=== PATIENT | female | born 1945 | race Caucasian/White ===

== ENCOUNTER → 2017-10-02 | Outpatient (CLI) | payer MEDICARE, OTHER ==
[~2017-10-02] MED LIST: ALPR0.5T3 PO; CALC1TAB87 PO; CITA10TA4 PO; CITR500T PO; FISH1200 PO; IBUP1TAB7 PO; IRBE150T15 PO; LEVO125T4 PO; MULTTAB67 PO; OMEP20TA93 PO; TRAM50TA PO; VITA500T83 PO
[2017-10-02 10:04] LABS: AUTOMATED NEUTROPHIL # 3.8 TH/MM3 (1.8-7.7); BASOPHIL # 0.1 TH/MM3 (0-0.2); EOSINOPHIL # 0.1 TH/MM3 (0-0.4); EOSINOPHIL % 1.5 % (0.0-4.0); HEMATOCRIT 40.5 % (35.0-46.0); HEMOGLOBIN 14.2 GM/DL (11.6-15.3); LYMPH % 29.3 % (9.0-44.0); LYMPHOCYTE # 1.9 TH/MM3 (1.0-4.8); MEAN CELL VOLUME 92.6 FL (80.0-100.0); MEAN CORPUSCULAR HEMOGLOBIN 32.5 PG (27.0-34.0); MEAN CORPUSCULAR HGB CONC 35.1 % (32.0-36.0); MEAN PLATELET VOLUME 8.7 FL (7.0-11.0); MONO % 10.7 % (0.0-8.0); MONOCYTE # 0.7 TH/MM3 (0-0.9); NEUT % 57.5 % (16.0-70.0); PLATELET COUNT 251 TH/MM3 (150-450); RED BLOOD COUNT 4.37 MIL/MM3 (4.00-5.30); RED CELL DISTRIBUTION WIDTH 12.8 % (11.6-17.2); WHITE BLOOD COUNT 6.6 TH/MM3 (4.0-11.0)
[2017-10-02 10:07] LABS: PROTHROMBIN TIME - PATIENT 10.1 SEC (9.8-11.6)
[2017-10-02 10:26] LABS: WESTERGREN SEDIMENTATION RATE 21 mm/hr (0-30)
[2017-10-02 10:28] LABS: ALBUMIN 3.2 GM/DL (3.4-5.0); AST (GOT) 15 U/L (15-37); BICARBONATE 29.7 MEQ/L (21.0-32.0); BLOOD UREA NITROGEN 22 MG/DL (7-18); CALCIUM 9.1 MG/DL (8.5-10.1); CHLORIDE 104 MEQ/L (98-107); CREATININE 0.94 MG/DL (0.50-1.00); GLOMERULAR FILTRATION RATE 59 ML/MIN (>89); GLUCOSE,FASTING 79 MG/DL (74-99); SODIUM (NA) 140 MEQ/L (136-145)
[2017-10-02 10:29] LABS: ALT (GPT) 11 U/L (10-53)
[2017-10-02 10:31] LABS: ALKALINE PHOSPHATASE 145 U/L (45-117); TOTAL BILIRUBIN ADULT 0.6 MG/DL (0.2-1.0); TOTAL PROTEIN 7.4 GM/DL (6.4-8.2)
[2017-10-02 10:32] LABS: BACTERIA, URINE OCC /hpf; BILIRUBIN, URINE NEG (NEG); BLOOD, URINE NEG (NEG); GLUCOSE,URINE NEG (NEG); KETONE, URINE NEG (NEG); MUCUS URINE FEW /lpf (OCC); NITRITE,URINE NEG (NEG); PH, URINE 5.5 (5.0-8.5); SQUAMOUS EPITHELIAL CELL URINE 11 /hpf (0-5); URINE COLOR YELLOW (YELLW/STRAW); URINE LEUKOCYTE ESTERASE MOD (NEG); WHITE BLOOD CELL CLUMPS RARE
--- NOTE | 2017-10-02 11:43 | RADRPT ---
EXAM DATE/TIME: 10/02/2017 11:35 [facility] COMPARISON: No previous studies available for comparison. INDICATIONS : Pre-op right hip replacement. MEDICAL HISTORY : Hypertension. SURGICAL HISTORY : None. ENCOUNTER: Initial ACUITY: 1 day PAIN SCORE: 0/10 LOCATION: Bilateral chest FINDINGS: PA and lateral views of the chest demonstrate the lungs to be symmetrically aerated without evidence of mass, infiltrate or effusion. The cardiomediastinal contours are unremarkable. Osseous structure s are intact. CONCLUSION: No acute disease. Carl Anderson MD FACR on October 02, 2017 at 11:40 Board Certified Radiologist. This report was verified electronically.
== END ==
LOC: CPRE 08:59
PROVIDERS: ATTEND Orthopaedic Surgery Sports Medicine
DX: Z01.812 Encounter for preprocedural laboratory examination (principal); Z01.811 Encounter for preprocedural respiratory examination; Z01.818 Encounter for other preprocedural examination; R82.99 Other abnormal findings in urine; M25.50 Pain in unspecified joint; M16.11 Unilateral primary osteoarthritis, right hip; I10 Essential (primary) hypertension; Z96.60 Presence of unspecified orthopedic joint implant; Z79.01 Long term (current) use of anticoagulants
CPT/HCPCS: 36415; 71046; 80053; 81001; 85025; 85610; 85652; 85730; 87086

== ENCOUNTER 2017-10-19 06:50 | Inpatient (IN) | payer MEDICARE, OTHER ==
[~2017-10-19] VITALS: Ht 154.9 cm; Wt 104.9 kg
[2017-10-19] MEDS ORDERED: HYDR-3288 PO (06:56)
[2017-10-19] MEDS ORDERED: ASPI81CH6 CHEW (06:57)
[2017-10-19] MEDS ORDERED: Post-op Orders (for Pharmacy) XX ONE (07:00)
[2017-10-19] MEDS ORDERED: ACETAMINOPHEN/HYDROcodone 325 MG/10 MG TAB PO PRN (07:00)
[2017-10-19] MEDS ORDERED: ZOLPIDEM TARTRATE 5 MG TAB PO PRN (07:00)
[2017-10-19] MEDS ORDERED: diphenhydrAMINE HCL 50 MG/ML VIAL IV PUSH PRN (07:00)
[2017-10-19] MEDS ORDERED: ONDANSETRON HCL 4 MG/2 ML VIAL IVP PRN (07:00)
[2017-10-19] MEDS ORDERED: MORPHINE SULFATE 4 MG/ML INJ IV PUSH PRN (07:00)
[2017-10-19] MEDS ORDERED: VANCOMYCIN 1000 MG/NS 250 ML (for <70 kg) IV SCH ×2 (07:30)
[2017-10-19] MEDS ORDERED: CHLORHEXIDINE GLUCONATE 2 % 1 PACK (2 CLOTHS) TOPICAL PRN (07:30)
[2017-10-19] MEDS ORDERED: METOPROLOL TARTRATE 25 MG TAB PO PRN (07:30)
[2017-10-19] MEDS ORDERED: LACTATED RINGER'S 1000 ML IV PRN (07:30)
[2017-10-19] MEDS ORDERED: POVIDONE IODINE 5% (ANTISEPSIS KIT) 4 APPLICATIONS EACH NARE PRN (07:30)
[2017-10-19] MEDS ORDERED: INSULIN HUMAN REGULAR 1,000 UNITS/10 ML VIAL SQ PRN (07:30)
[2017-10-19] MEDS ORDERED: POVIDONE IODINE 7.5% SCRUB 118 ML BOTTLE TOPICAL SCH (07:30)
[2017-10-19] MEDS ORDERED: SODIUM CHLORID 0.9% 500 ML IV PRN (07:30)
[2017-10-19] MEDS ORDERED: ceFAZolin 2 GM PREMIX 50 ML IV SCH (07:30)
[2017-10-19] MEDS ORDERED: EXPAREL PERI-ARTICULAR INJECTION (TOTAL VOL. 60 ML) P-ARTICULR SCH ×2 (07:30)
[2017-10-19] MEDS ORDERED: CHLORHEXIDINE GLUCONATE 4% SOLN 120 ML BTL TOPICAL SCH (07:30)
[2017-10-19] MEDS ORDERED: DEXAMETHASONE SOD PHOS 20 MG/5 ML VIAL IV SCH (07:45)
[2017-10-19] MEDS ORDERED: TRANEXAMIC PERI-ARTICULAR 3,000 MG/NS 100 ML P-ARTICULR SCH ×2 (07:45)
[2017-10-19] MEDS ORDERED: VANCOMYCIN 1 GM/200 ML INJ 200 ML IV ONE (07:55)
[2017-10-19] MEDS ORDERED: SODIUM CHLORIDE 0.9% IV SCH (08:00)
[2017-10-19] MEDS ORDERED: TRANEXAMIC ACID IV SCH (08:00)
[2017-10-19 08:14] LABS: BILIRUBIN, URINE NEG (NEG); BLOOD, URINE NEG (NEG); GLUCOSE,URINE NEG (NEG); HYALINE CAST, URINE 3 /lpf (RARE); KETONE, URINE NEG (NEG); MUCUS URINE FEW /lpf (OCC); NITRITE,URINE NEG (NEG); SQUAMOUS EPITHELIAL CELL URINE 4 /hpf (0-5); URINE COLOR YELLOW (YELLW/STRAW); URINE LEUKOCYTE ESTERASE NEG (NEG)
[2017-10-19] MEDS ORDERED: GENTAMICIN SULFATE 80 MG/2 ML VIAL ONE (08:56)
[2017-10-19] MEDS ORDERED: BISACODYL 10 MG SUPP RECTAL PRN (09:00)
[2017-10-19] MEDS: CITALOPRAM HYDROBROMIDE 20 MG TAB PO SCH (09:00)
[2017-10-19] MEDS: LEVOTHYROXINE SODIUM 125 MCG TAB PO SCH (09:00)
[2017-10-19] MEDS ORDERED: ACETAMINOPHEN 1000 MG/100 ML 100 ML IV ONE (10:19)
[2017-10-19] MEDS ORDERED: DO NOT ADM ANY ANTICOAGULANT DRUGS PRN (11:56)
[2017-10-19] MEDS ORDERED: LIDOCAINE HCL 1% PF 5 ML SYRINGE OTHER ONE (12:00)
[2017-10-19] MEDS ORDERED: PHENYLEPH/NS 1000 MCG/10 ML SYR IV ONE (12:00)
[2017-10-19] MEDS ORDERED: NEOSTIGMINE 5 MG/5 ML SYRINGE IV PUSH ONE (12:00)
[2017-10-19] MEDS ORDERED: GLYCOPYRROLATE 1 MG/5 ML SYRINGE IV PUSH ONE (12:00)
[2017-10-19] MEDS ORDERED: ePHEDrine/NS 25 MG/5 ML SYRINGE IV ONE (12:00)
[2017-10-19] MEDS ORDERED: ROCURONIUM INJ 50 MG/5 ML SYRINGE IV PUSH ONE (12:00)
[2017-10-19] MEDS ORDERED: PROPOFOL 200 MG/20 ML AMP IV ONE (12:00)
[2017-10-19] MEDS ORDERED: ONDANSETRON HCL 4 MG/2 ML VIAL IV ONE (12:00)
[2017-10-19] MEDS ORDERED: MORPHINE SULFATE 4 MG/ML INJ ONE (12:01)
[2017-10-19] MEDS ORDERED: MIDAZOLAM HCL 2 MG/2 ML VIAL ONE (12:01)
[2017-10-19] MEDS ORDERED: *MEPERIDINE 25 MG INJ VIAL PERIprocedural Use ONLY ONE (12:07)
[2017-10-19] MEDS: SODIUM CHLOR 0.9% 1000 ML INJ 1,000 ML IV SCH ×2 (12:17→18:35)
[2017-10-19] MEDS ORDERED: *morphine SULFATE 10 MG/ML PERIprocedure ONLY ONE ×2 (12:27→13:05)
--- NOTE | 2017-10-19 13:07 | RADRPT ---
EXAM DATE/TIME: 10/19/2017 12:15 [facility] COMPARISON: No previous studies available for comparison. INDICATIONS : Post operative right hip surgery. MEDICAL HISTORY : Hypertension. SURGICAL HISTORY : None. ENCOUNTER: Initial ACUITY: 1 day PAIN SCORE: Non-responsive. LOCATION: Right hip. FINDINGS: Total right hip arthroplasty in place As the components are well positioned and in gross anatomic alignment. No significant zahira-hardware l ucency no significant bony fracture. Expected postoperative soft tissue changes in the right hip. CONCLUSION: 1. Status post right hip arthroplasty in anatomic alignment without significant fracture. Maulik Hameed MD on October 19, 2017 at 13:04 Board Certified Radiologist. This report was verified electronically.
[2017-10-19] MEDS ORDERED: HYDROmorphone HCL PF 2 MG/ML VIAL ONE (13:23)
--- NOTE | 2017-10-19 13:46 | PD.CONS ---
HPI Service [facility] Consult Requested By Dr. Duglas Serrano from orthopedic service Reason for Consult Medical management Primary Care Physician Catia Pearson MD Diagnoses: History of Present Illness Patient is a very pleasant 72-year-old female with history of hypertension hypothyroidism GERD, depression who is admitted under orthopedic services today and underwent right hip arthroplasty. Patient states she has been having pain for the past 2 years now, initially walking independently progress to cane and for the past couple of months and had been using a walker for ambulation. Also have been increasing pain with ambulation. Finally admitted today and underwent surgery. [facility] consulted for management of medical problems. Patient is now seen post op at PACU, very motivated with physical therapy. Review of Systems Constitutional: DENIES: Diaphoretic episodes, Fatigue, Fever, Weight gain, Weight loss, Chills, Dizziness, Change in appetite, Night Sweats Endocrine: DENIES: Abnorml menstrual pattern, Heat/cold intolerance, Polydipsia , Polyuria, Polyphagia Eyes: DENIES: Blurred vision, Diplopia, Eye inflammation, Eye pain, Vision loss , Photosensitivity, Double Vision Ears, nose, mouth, throat: DENIES: Tinnitus, Hearing loss, Vertigo, Nasal discharge, Oral lesions, Throat pain, Hoarseness, Ear Pain, Running Nose, Epistaxis, Sinus Pain, Toothache, Odynophagia Respiratory: DENIES: Apneas, Cough, Snoring, Wheezing, Hemoptysis, Sputum production, Shortness of breath Cardiovascular: DENIES: Chest pain, Palpitations, Syncope, Dyspnea on Exertion , PND, Lower Extremity Edema, Orthopnea, Claudication Gastrointestinal: DENIES: Abdominal pain, Black stools, Bloody stools, Constipation, Diarrhea, Nausea, Vomiting, Difficulty Swallowing, Anorexia Genitourinary: DENIES: Abnormal vaginal bleeding, Dysmenorrhea, Dyspareunia, Sexual dysfunction, Urinary frequency, Urinary incontinence, Urgency, Hematuria , Dysuria, Nocturia, Vaginal discharge Musculoskeletal: COMPLAINS OF: Joint pain Integumentary: DENIES: Abnormal pigmentation, Pruritus, Rash, Nail changes, Breast masses, Breast skin changes, Nipple discharge Hematologic/lymphatic: DENIES: Bruising, Lymphadenopathy Immunologic/allergic: DENIES: Eczema, Urticaria Neurologic: DENIES: Abnormal gait, Headache, Localized weakness, Paresthesias, Seizures, Speech Problems, Tremor, Poor Balance Psychiatric: COMPLAINS OF: Depression (positive history controlled by medication), DENIES: Anxiety, Confusion, Mood changes, Hallucinations, Agitation , Suicidal Ideation, Homicidal Ideation, Delusions Past Family Social History Allergies: Coded Allergies: No Known Allergies (Unverified , 10/02/17) Past Medical History Hypertension Hypothyroidism GERD Depression Past Surgical History No previous surgeries Reported Medications Citalopram Synthroid Enalapril Protonix Active Ordered Medications See EMR Family History Noncontributory Social History History of smoking quit 30 years ago next I'm very occasional wine Physical Exam Vital Signs Vital Signs Date Time Temp Pulse Resp B/P (MAP) Pulse Ox O2 Delivery O2 Flow Rate FiO2 10/19/17 13:30 67 19 105/56 (72) 97 Nasal Cannula 2 10/19/17 13:00 79 13 107/53 (71) 99 Nasal Cannula 2 10/19/17 12:45 78 17 130/60 (83) 100 Nasal Cannula 2 10/19/17 12:30 81 19 118/54 (75) 99 Nasal Cannula 2 10/19/17 12:15 79 17 123/58 (79) 100 Nasal Cannula 2 10/19/17 12:00 80 18 133/60 (84) 100 Nasal Cannula 2 10/19/17 11:56 97.5 83 20 122/59 (80) 99 Nasal Cannula 2 10/19/17 07:53 98.4 79 18 104/49 (67) 96 Physical Exam GENERAL: Awake alert oriented 3 SKIN: No rashes, ecchymoses or lesions. Cool and dry. HEAD: Atraumatic. Normocephalic. EYES: Pupils equal round and reactive. Extraocular motions intact. No scleral icterus. ENT: Nose without bleeding, Airway patent. NECK: . No JVD or lymphadenopathy. Supple, nontender, no meningeal signs. CARDIOVASCULAR: Regular rate and rhythm without murmurs, gallops, or rubs. RESPIRATORY: Clear to auscultation. Breath sounds equal bilaterally. No wheezes , rales, or rhonchi. GASTROINTESTINAL: Abdomen soft, non-tender, nondistended.. No guarding. MUSCULOSKELETAL: Right hip postop dressing in place. Right lower extremity with leg brace in place good peripheral pulses Extremities without clubbing, cyanosis, or edema. No joint tenderness, effusion , or edema noted. No calf tenderness. Negative Homans sign bilaterally. NEUROLOGICAL: Awake and alert. Cranial nerves II through XII intact. Motor and sensory grossly within normal limits. Moves all extremities spontaneously. Normal speech. Laboratory Laboratory Tests Test 10/19/17 07:30 Urine Color YELLOW Urine Turbidity CLEAR Urine pH 6.0 Urine Specific [place] 1.012 Urine Protein NEG Urine Glucose (UA) NEG Urine Ketones NEG Urine Occult Blood NEG Urine Nitrite NEG Urine Bilirubin NEG Urine Urobilinogen LESS THAN 2.0 Urine Leukocyte Esterase NEG Urine RBC LESS THAN 1 Urine WBC 1 Urine Squamous Epithelial Cells 4 Urine Hyaline Casts 3 Urine Mucus FEW Microscopic Urinalysis Comment CATH-CULT NOT IND Assessment and Plan Assessment and Plan 72-year-old female admitted Status post right total hip arthroplasty Orthopedic services ff. PTOT daily. When necessary pain meds. History of hypothyroidism. Continue on Synthroid History of hypertension continue on Cozaar History of GERD continue on PPI History of depression continue on citalopram.Xanax on Lovenox for DVT prophylaxis Discharge planning- case management consulted [facility] facility. Thank you for this consultation follow patient in-house with you Discussed Condition With Patient Amanda Lopez MD Oct 19, 2017 13:46
[2017-10-19] MEDS: ceFAZolin 2 GM PREMIX 50 ML IV SCH ×2 (15:14→22:00)
[2017-10-19 16:30] VITALS: BP 110/41; PULSE 63; RESP 18; TEMP 96; O2SAT 95
[2017-10-19] MEDS: ALPRAZolam 0.5 MG TAB PO PRN (18:12)
[2017-10-19] MEDS: ACETAMINOPHEN/HYDROcodone 325 MG/10 MG TAB PO PRN ×2 (18:16→23:33)
[2017-10-19 20:05] VITALS: BP 120/54; PULSE 77; RESP 18; TEMP 96.9; O2SAT 97
[2017-10-19] MEDS: ASCORBIC ACID 500 MG TAB PO SCH (23:33)
[2017-10-20] VITALS (8 sets, daily range): BP systolic 108–156; BP diastolic 57–92; PULSE 72–90; RESP 18; TEMP 96.5–99.4; O2SAT 95–99
[2017-10-20] MEDS: ceFAZolin 2 GM PREMIX 50 ML IV SCH (04:53)
[2017-10-20] MEDS: LEVOTHYROXINE SODIUM 125 MCG TAB PO SCH (04:55)
[2017-10-20] MEDS: SODIUM CHLOR 0.9% 1000 ML INJ 1,000 ML IV SCH ×2 (04:55→15:00)
--- NOTE | 2017-10-20 07:48 | HHI.PR ---
Subjective Remarks had a good night- slept good no pain complains Objective Vitals Vital Signs Date Time Temp Pulse Resp B/P (MAP) Pulse Ox O2 Delivery O2 Flow Rate FiO2 10/20/17 05:00 97.0 72 18 131/62 (85) 98 10/20/17 00:05 96.8 74 18 125/92 (103) 95 10/19/17 20:05 96.9 77 18 120/54 (76) 97 10/19/17 16:30 96.0 63 18 110/41 (64) 95 10/19/17 15:00 97.7 68 18 98/59 (72) 96 Nasal Cannula 2 10/19/17 14:30 70 16 128/64 (85) 93 Nasal Cannula 2 10/19/17 14:00 64 14 102/51 (68) 94 Nasal Cannula 2 10/19/17 13:30 67 19 105/56 (72) 97 Nasal Cannula 2 10/19/17 13:00 79 13 107/53 (71) 99 Nasal Cannula 2 10/19/17 12:45 78 17 130/60 (83) 100 Nasal Cannula 2 10/19/17 12:30 81 19 118/54 (75) 99 Nasal Cannula 2 10/19/17 12:15 79 17 123/58 (79) 100 Nasal Cannula 2 10/19/17 12:00 80 18 133/60 (84) 100 Nasal Cannula 2 10/19/17 11:56 97.5 83 20 122/59 (80) 99 Nasal Cannula 2 10/19/17 07:53 98.4 79 18 104/49 (67) 96 I/O 10/19/17 10/19/17 10/19/17 10/20/17 10/20/17 10/20/17 07:00 15:00 23:00 07:00 15:00 23:00 Intake Total 1620 ml 830 ml 360 ml Output Total 3750 ml 320 ml Balance -2130 ml 510 ml 360 ml Intake Oral 20 ml 380 ml 360 ml IV Total 1600 ml 450 ml Output Urine Total 150 ml 320 ml Estimated Blood Loss 600 ml Other 3000 ml # Voids 1 # Bowel Movements 0 0 Imaging Last Impressions Hip and Pelvis X-Ray 10/19/17 0000 Signed Impressions: Service Date/Time: Thursday, October 19, 2017 12:15 - CONCLUSION: 1. Status post right hip arthroplasty in anatomic alignment without significant fracture. Maulik Hameed MD Objective Remarks anicteric lung- clear regular rhythm abdomen soft, nontender right LE- leg brace in place right hip -post op dressing in place sensory -intact Procedures 10/19- right hip arthroplasty A/P Assessment and Plan 72-year-old female admitted Status post right total hip arthroplasty 10/19 Orthopedic services ff. PTOT daily. prn pain meds History of hypothyroidism. Continue on Synthroid History of hypertension continue on Cozaar History of GERD continue on PPI History of depression continue on citalopram.Xanax. On Lovenox for DVT prophylax Incentive spirometry Discharge planning- case management consulted -choice- Amanda Jackson MD Oct 20, 2017 07:48
--- NOTE | 2017-10-20 08:08 | PD.ORT.PN ---
Subjective Post Op Day #: 1 Subjective Remarks doing well. pain tolerable. Objective Vitals Vital Signs Date Time Temp Pulse Resp B/P (MAP) Pulse Ox O2 Delivery O2 Flow Rate FiO2 10/20/17 05:00 97.0 72 18 131/62 (85) 98 10/20/17 00:05 96.8 74 18 125/92 (103) 95 10/19/17 20:05 96.9 77 18 120/54 (76) 97 10/19/17 16:30 96.0 63 18 110/41 (64) 95 10/19/17 15:00 97.7 68 18 98/59 (72) 96 Nasal Cannula 2 10/19/17 14:30 70 16 128/64 (85) 93 Nasal Cannula 2 10/19/17 14:00 64 14 102/51 (68) 94 Nasal Cannula 2 10/19/17 13:30 67 19 105/56 (72) 97 Nasal Cannula 2 10/19/17 13:00 79 13 107/53 (71) 99 Nasal Cannula 2 10/19/17 12:45 78 17 130/60 (83) 100 Nasal Cannula 2 10/19/17 12:30 81 19 118/54 (75) 99 Nasal Cannula 2 10/19/17 12:15 79 17 123/58 (79) 100 Nasal Cannula 2 10/19/17 12:00 80 18 133/60 (84) 100 Nasal Cannula 2 10/19/17 11:56 97.5 83 20 122/59 (80) 99 Nasal Cannula 2 I/O 10/19/17 10/19/17 10/19/17 10/20/17 10/20/17 10/20/17 07:00 15:00 23:00 07:00 15:00 23:00 Intake Total 1620 ml 830 ml 360 ml Output Total 3750 ml 320 ml Balance -2130 ml 510 ml 360 ml Intake Oral 20 ml 380 ml 360 ml IV Total 1600 ml 450 ml Output Urine Total 150 ml 320 ml Estimated Blood Loss 600 ml Other 3000 ml # Voids 1 # Bowel Movements 0 0 Objective Remarks in bed, nad dressing c/d/i thigh soft neg homans nvi Assessment & Plan Ortho Post Op Day #: 1 Problem List: Assessment and Plan s/p R MARLENI posterior approach wbat - posterior hip precautions lovenox, d/c on asa81 ok to maintain dressing unless saturated d/c planning to snf - [facility]. f/up dr. rendon 2 weeks Duglas Lopez Oct 20, 2017 08:08
--- NOTE | 2017-10-20 08:10 | HHI.DCPOC ---
Discharge Care Plan Diagnosis: (1) Primary localized osteoarthrosis, pelvic region and thigh Your Health Problems Are: Difficulty with ADL Goals to Promote Your Health * To prevent worsening of your condition and complications * To maintain your health at the optimal level Directions to Meet Your Goals Take your medications as prescribed Follow your dietary instruction Follow activity as directed Keep your appointments as scheduled Take your immunizations and boosters as scheduled If your symptoms worsen call your PCP, if no PCP go to Urgent Care Center or Emergency Room Smoking is Dangerous to Your Health. Avoid second hand smoke Call the 24-hour hour crisis hotline for domestic abuse at Duglas Lopez Oct 20, 2017 08:10
[2017-10-20] MEDS ORDERED: WALKER WHEELS/F1 MIS (08:13)
[2017-10-20] MEDS ORDERED: COMMODE 3-IN-11 MIS (08:14)
[2017-10-20 08:23] LABS: HEMATOCRIT 33.4 % (35.0-46.0); HEMOGLOBIN 11.7 GM/DL (11.6-15.3); MEAN CELL VOLUME 93.7 FL (80.0-100.0); MEAN CORPUSCULAR HEMOGLOBIN 32.8 PG (27.0-34.0); MEAN PLATELET VOLUME 8.8 FL (7.0-11.0); PLATELET COUNT 202 TH/MM3 (150-450); RED BLOOD COUNT 3.57 MIL/MM3 (4.00-5.30); RED CELL DISTRIBUTION WIDTH 13.1 % (11.6-17.2)
[2017-10-20] MEDS: LOSARTAN 50 MG TAB PO SCH (08:27)
[2017-10-20] MEDS: PANTOPRAZOLE SOD 20 MG DELAYED RELEASE TAB PO SCH (08:28)
[2017-10-20] MEDS: CITALOPRAM HYDROBROMIDE 20 MG TAB PO SCH (08:28)
[2017-10-20 09:12] LABS: BICARBONATE 27.4 MEQ/L (21.0-32.0); CALCIUM 8.1 MG/DL (8.5-10.1); CREATININE 1.32 MG/DL (0.50-1.00)
[2017-10-20] MEDS: ACETAMINOPHEN/HYDROcodone 325 MG/10 MG TAB PO PRN ×3 (11:17→19:41)
[2017-10-20] MEDS: ENOXAPARIN SODIUM 40 MG/0.4 ML SYRINGE SQ SCH (11:17)
--- NOTE | 2017-10-20 11:53 | MP ---
cc: TARA BAKER M.D. DATE OF SURGERY 10/19/2017 PREOPERATIVE DIAGNOSIS Right hip osteoarthritis. POSTOPERATIVE DIAGNOSIS Right hip osteoarthritis. PROCEDURE Right total hip arthroplasty. SURGEON Dr. Tara Baker SALESPERSON HOSIERY Keon Lopez PA-C ANESTHESIA General. ESTIMATED BLOOD LOSS 200 cc. COMPLICATIONS None. IMPLANTS USED DePuy Corail size 11 high offset Press-Fit femoral stem, size 48 Lindside Gription cup, size 32 mm cobalt chrome head, +9 neck, a +4 high offset 10-degree polyethylene highly cross-linked liner and a 6.5 x 35-mm screw. JUSTIFICATION This patient is a 72-year-old female with history of severe end-stage osteoarthritis involving the right hip. She has severe disabling pain with standing, walking, ambulation with weightbearing activities and severe pain at rest. The pain does interfere with activities of daily living. She has failed greater than three months of nonoperative conservative treatment to include medications, therapy, injections, ambulatory assistive aids, home exercise program, activity modification and weight loss attempts. X-rays of the right hip reveal severe end-stage osteoarthritis, [id number] joint space narrowing, subchondral sclerosis, subchondral cysts, osteophyte formation with subluxation. The patient was counseled as to the risks, benefits and alternatives to a total hip arthroplasty. The risks were discussed which include but are not limited to anesthesia, bleeding, infection, damage to nerves, blood vessels, pain, stiffness, fracture dislocation, leg length discrepancy, blood clots, pulmonary embolism and even . The patient's pain is severe. She favored the benefits over the risks. She did wish to proceed with surgery. PROCEDURE IN DETAIL Written consent was obtained. The patient was identified by name and taken to the operating room, placed supine on the operating room table. General anesthesia was administered as well as 2 grams of IV Ancef and 1 gram of IV vancomycin. The patient was carefully turned to the left lateral position. A lateral arm roll was placed. All bony prominences and pressure points were well padded. The right hip and right lower extremity were prepped and draped using isopropyl alcohol, Hibiclens solution and Chloraprep solution. After a time-out was performed, a longitudinal incision was made over the posterolateral aspect of the right hip. The fascial layer was incised. The piriformis and capsule was incised and tagged with #2 FiberWire suture. The osteoarthritic femoral head and neck component was dislocated. An oscillating saw was used to perform a femoral neck cut. The femoral head and neck component was removed. A 10 blade scalpel was used to excise the labrum and sequential reaming begun at size 44 mm, carried through size 48 mm. Subsequently, a solid Lindside size 48 mm cup was impacted. I was not satisfied with the amount of purchase of the solid cup and I changed this out for a 48-mm cup that has a three-hole option. After I implanted that cup, I placed a 6.5 mm x 35 mm screw in the posterior superior quadrant of the acetabulum. There was excellent purchase and fixation after insertion of the screw and the cup was tested manually and noted to have good stability. The cup was implanted at approximately 45 degrees of adduction and 10 degrees of anteversion. At this point attention was turned to the femur where a box-cutting osteotome was used to gain entrance into the intramedullary canal of the femur. This was followed by canal finder, lateralizing reamers, sequential broaching up to size 11, followed by calcar planer. Trial head and neck combinations were evaluated and the final components implanted. With the current components the leg could achieve full extension and external rotation without evidence of anterior instability or impingement. The hip could be flexed 90 degrees and internally rotated approximately 70 degrees before evidence of posterior instability. Soft tissue tension felt appropriate. The surgical wound was thoroughly irrigated with sterile saline pulse lavage antibiotic impregnated solution. The piriformis and capsule was repaired with #2 FiberWire sutures, the fascial layer with #1 Vicryl suture, the subcutaneous layer with 2-0 Vicryl suture and the skin incision closed with Dermabond. Sterile dressings were applied. The patient tolerated the procedure well with no intraoperative complications noted. Keon Lopez, physician assistant distribution manager certified, was present during the entire procedure to include patient positioning and the procedure itself. The medical necessity of a physician assistant distribution manager was indicated in this case due to the complexity of the procedure. He assisted with appropriate manipulation of the leg and also retraction of muscle, tendon, bone and neurovascular structures. He assisted with preparation of bone and also implantation of the prosthetic replacement. MD DAKSHA Garcia/TAYLA /11:27 AM /11:22 AM
[2017-10-20] MEDS: MULTIVITAMINS/MINERALS THERAPEUTIC TAB PO SCH (19:41)
[2017-10-20] MEDS: ASCORBIC ACID 500 MG TAB PO SCH (19:41)
[2017-10-20] MEDS: DOCUSATE SODIUM 100 MG CAP PO SCH (19:41)
[2017-10-20] MEDS: ALPRAZolam 0.5 MG TAB PO PRN (21:17)
[2017-10-21] VITALS (7 sets, daily range): BP systolic 100–129; BP diastolic 51–74; PULSE 75–87; RESP 16–18; TEMP 96.7–99.6; O2SAT 93–98
[2017-10-21] MEDS: SODIUM CHLOR 0.9% 1000 ML INJ 1,000 ML IV SCH ×3 (01:00→20:40)
[2017-10-21] MEDS: LEVOTHYROXINE SODIUM 125 MCG TAB PO SCH (06:08)
[2017-10-21] MEDS: ACETAMINOPHEN/HYDROcodone 325 MG/10 MG TAB PO PRN ×5 (06:09→23:28)
--- NOTE | 2017-10-21 08:02 | PD.ORT.PN ---
Subjective Post Op Day #: 2 Subjective Remarks increase in pain last night, groin region. currently under control. Objective Vitals Vital Signs Date Time Temp Pulse Resp B/P (MAP) Pulse Ox O2 Delivery O2 Flow Rate FiO2 10/21/17 00:45 98.6 83 18 102/57 (72) 97 10/20/17 20:25 99.4 90 18 156/72 (100) 96 10/20/17 17:48 97 21 10/20/17 16:27 16 10/20/17 16:00 97.2 85 18 139/62 (87) 97 10/20/17 12:01 96.5 74 18 108/57 (74) 95 10/20/17 09:42 99 21 I/O 10/20/17 10/20/17 10/20/17 10/21/17 10/21/17 10/21/17 07:00 15:00 23:00 07:00 15:00 23:00 Intake Total 360 ml 960 ml 360 ml 360 ml Output Total 200 ml Balance 360 ml 760 ml 360 ml 360 ml Intake Oral 360 ml 960 ml 360 ml 360 ml Output Urine Total 200 ml # Voids 1 1 2 # Bowel Movements 0 0 0 0 Result Diagram: 10/20/17 0742 10/20/17 0742 Objective Remarks in chair, nad dressing c/d/i thigh soft neg homans nvi Assessment & Plan Ortho Post Op Day #: 2 Problem List: Assessment and Plan s/p R MARLENI posterior approach wbat - posterior hip precautions lovenox, d/c on asa81 ok to maintain dressing unless saturated d/c planning to snf - [facility]. f/up dr. rendon 2 weeks Duglas Lopez Oct 21, 2017 08:02
[2017-10-21] MEDS ORDERED: MAGNESIUM HYDROXIDE SUSP 30 ML CUP PO PRN (08:15)
[2017-10-21 08:21] LABS: HEMATOCRIT 32.8 % (35.0-46.0); HEMOGLOBIN 11.5 GM/DL (11.6-15.3); MEAN CELL VOLUME 93.1 FL (80.0-100.0); MEAN CORPUSCULAR HEMOGLOBIN 32.7 PG (27.0-34.0); MEAN CORPUSCULAR HGB CONC 35.1 % (32.0-36.0); MEAN PLATELET VOLUME 8.9 FL (7.0-11.0); PLATELET COUNT 220 TH/MM3 (150-450); RED BLOOD COUNT 3.52 MIL/MM3 (4.00-5.30); RED CELL DISTRIBUTION WIDTH 12.9 % (11.6-17.2); WHITE BLOOD COUNT 8.8 TH/MM3 (4.0-11.0)
[2017-10-21] MEDS: PANTOPRAZOLE SOD 20 MG DELAYED RELEASE TAB PO SCH (08:22)
[2017-10-21] MEDS: DOCUSATE SODIUM 100 MG CAP PO SCH ×2 (08:22→19:22)
[2017-10-21] MEDS: MULTIVITAMINS/MINERALS THERAPEUTIC TAB PO SCH ×2 (08:23→19:22)
[2017-10-21] MEDS: CITALOPRAM HYDROBROMIDE 20 MG TAB PO SCH (08:24)
[2017-10-21] MEDS: LOSARTAN 50 MG TAB PO SCH (08:25)
[2017-10-21 08:39] LABS: BICARBONATE 24.2 MEQ/L (21.0-32.0); CALCIUM 8.6 MG/DL (8.5-10.1); CREATININE 1.05 MG/DL (0.50-1.00)
[2017-10-21] MEDS: ENOXAPARIN SODIUM 40 MG/0.4 ML SYRINGE SQ SCH (10:48)
--- NOTE | 2017-10-21 15:11 | HHI.PR ---
Subjective Remarks She was seen and examined No complaint of significant pain to lower extremity Objective Vitals Vital Signs Date Time Temp Pulse Resp B/P (MAP) Pulse Ox O2 Delivery O2 Flow Rate FiO2 10/21/17 11:49 16 10/21/17 08:00 99.6 75 16 100/58 (72) 95 10/21/17 00:45 98.6 83 18 102/57 (72) 97 10/20/17 20:25 99.4 90 18 156/72 (100) 96 10/20/17 17:48 97 21 10/20/17 16:00 97.2 85 18 139/62 (87) 97 I/O 10/20/17 10/20/17 10/20/17 10/21/17 10/21/17 10/21/17 06:59 14:59 22:59 06:59 14:59 22:59 Intake Total 360 ml 960 ml 360 ml 360 ml Output Total 200 ml Balance 360 ml 760 ml 360 ml 360 ml Intake Oral 360 ml 960 ml 360 ml 360 ml Output Urine Total 200 ml # Voids 1 1 2 # Bowel Movements 0 0 0 0 Result Diagram: 10/21/17 0733 10/21/17 0733 Imaging Last Impressions Hip and Pelvis X-Ray 10/19/17 0000 Signed Impressions: Service Date/Time: Thursday, October 19, 2017 12:15 - CONCLUSION: 1. Status post right hip arthroplasty in anatomic alignment without significant fracture. Maulik Hameed MD Objective Remarks GENERAL: NAD SKIN: Warm and dry. HEAD: Normocephalic. EYES: No scleral icterus. No injection or drainage. NECK: Supple, trachea midline. No JVD or lymphadenopathy. CARDIOVASCULAR: Regular rate and rhythm without murmurs, gallops, or rubs. RESPIRATORY: Breath sounds equal bilaterally. No accessory muscle use. GASTROINTESTINAL: Abdomen soft, non-tender, nondistended. MUSCULOSKELETAL: No cyanosis, or edema. RLE repair-neurovascular intact BACK: Nontender without obvious deformity. No CVA tenderness. Procedures 10/19- right hip arthroplasty A/P Assessment and Plan 72 Year-old female with Status post right total hip arthroplasty 10/19 Treatment per orthopedic surgery. PT/OT daily. prn pain meds History of hypothyroidism. Continue on Synthroid History of hypertension continue on Cozaar History of GERD continue on PPI History of depression continue on citalopram.Xanax. On Lovenox for DVT prophylax, will discharge on aspirin Fahad Denney MD Oct 21, 2017 15:11
[2017-10-21] MEDS: ASCORBIC ACID 500 MG TAB PO SCH (19:22)
[2017-10-22] MEDS: ACETAMINOPHEN/HYDROcodone 325 MG/10 MG TAB PO PRN ×3 (03:22→12:21)
[2017-10-22] MEDS: LEVOTHYROXINE SODIUM 125 MCG TAB PO SCH (04:32)
[2017-10-22] MEDS: SODIUM CHLOR 0.9% 1000 ML INJ 1,000 ML IV SCH (05:27)
[2017-10-22 06:13] LABS: HEMATOCRIT 29.9 % (35.0-46.0); HEMOGLOBIN 10.6 GM/DL (11.6-15.3); MEAN CELL VOLUME 92.5 FL (80.0-100.0); MEAN CORPUSCULAR HEMOGLOBIN 32.8 PG (27.0-34.0); MEAN CORPUSCULAR HGB CONC 35.5 % (32.0-36.0); MEAN PLATELET VOLUME 8.9 FL (7.0-11.0); PLATELET COUNT 186 TH/MM3 (150-450); RED BLOOD COUNT 3.23 MIL/MM3 (4.00-5.30); RED CELL DISTRIBUTION WIDTH 12.7 % (11.6-17.2); WHITE BLOOD COUNT 7.6 TH/MM3 (4.0-11.0)
[2017-10-22 06:39] LABS: BICARBONATE 26.1 MEQ/L (21.0-32.0); CALCIUM 8.6 MG/DL (8.5-10.1); CREATININE 0.82 MG/DL (0.50-1.00)
[2017-10-22 08:10] VITALS: O2SAT 95
[2017-10-22] MEDS: CITALOPRAM HYDROBROMIDE 20 MG TAB PO SCH (08:12)
[2017-10-22] MEDS: DOCUSATE SODIUM 100 MG CAP PO SCH (08:12)
[2017-10-22] MEDS: PANTOPRAZOLE SOD 20 MG DELAYED RELEASE TAB PO SCH (08:12)
[2017-10-22] MEDS: MULTIVITAMINS/MINERALS THERAPEUTIC TAB PO SCH (08:12)
[2017-10-22] MEDS: LOSARTAN 50 MG TAB PO SCH (08:13)
--- NOTE | 2017-10-22 08:14 | PD.ORT.PN ---
Subjective Post Op Day #: 3 Subjective Remarks pain much improved Objective Vitals Vital Signs Date Time Temp Pulse Resp B/P (MAP) Pulse Ox O2 Delivery O2 Flow Rate FiO2 10/21/17 22:58 96.7 87 18 113/58 (76) 97 10/21/17 21:49 98 21 10/21/17 19:19 96.7 83 18 111/51 (71) 98 10/21/17 16:01 16 10/21/17 12:00 97.3 79 16 114/52 (72) 96 I/O 10/21/17 10/21/17 10/21/17 10/22/17 10/22/17 10/22/17 07:00 15:00 23:00 07:00 15:00 23:00 Intake Total 360 ml 600 ml 360 ml 720 ml Balance 360 ml 600 ml 360 ml 720 ml Intake Oral 360 ml 600 ml 360 ml 720 ml # Voids 2 3 1 1 # Bowel Movements 0 0 0 Result Diagram: 10/22/17 0425 10/22/17 0425 Objective Remarks in chair, nad dressing c/d/i thigh soft neg homans nvi Assessment & Plan Ortho Post Op Day #: 3 Problem List: Assessment and Plan s/p R MARLENI posterior approach wbat - posterior hip precautions lovenox, d/c on asa81 start daily dressing changes today d/c planning to snf - cleared for d/c f/up dr. rendon 2 weeks Duglas Lopez Oct 22, 2017 08:14
[2017-10-22 08:25] VITALS: BP 114/67; PULSE 79; RESP 17; TEMP 97.1; O2SAT 98
[2017-10-22] MEDS: ENOXAPARIN SODIUM 40 MG/0.4 ML SYRINGE SQ SCH (11:00)
[2017-10-22 12:03] VITALS: BP 92/54; PULSE 70; RESP 17; TEMP 97.8; O2SAT 97
--- NOTE | 2017-10-22 12:17 | HHI.PR ---
Subjective Remarks Patient was seen and examined States pain is well controlled Looking for discharge home today Objective Vitals Vital Signs Date Time Temp Pulse Resp B/P (MAP) Pulse Ox O2 Delivery O2 Flow Rate FiO2 10/22/17 12:03 97.8 70 17 92/54 (67) 97 10/22/17 08:25 97.1 79 17 114/67 (83) 98 10/22/17 08:10 95 21 10/21/17 22:58 96.7 87 18 113/58 (76) 97 10/21/17 21:49 98 21 10/21/17 19:19 96.7 83 18 111/51 (71) 98 10/21/17 16:01 16 I/O 10/21/17 10/21/17 10/21/17 10/22/17 10/22/17 10/22/17 07:00 15:00 23:00 07:00 15:00 23:00 Intake Total 360 ml 600 ml 360 ml 720 ml Balance 360 ml 600 ml 360 ml 720 ml Intake Oral 360 ml 600 ml 360 ml 720 ml # Voids 2 3 1 1 # Bowel Movements 0 0 0 Result Diagram: 10/22/175 10/22/17 0425 Objective Remarks GENERAL: NAD SKIN: Warm and dry. HEAD: Normocephalic. EYES: No scleral icterus. No injection or drainage. NECK: Supple, trachea midline. No JVD or lymphadenopathy. CARDIOVASCULAR: Regular rate and rhythm without murmurs, gallops, or rubs. RESPIRATORY: Breath sounds equal bilaterally. No accessory muscle use. GASTROINTESTINAL: Abdomen soft, non-tender, nondistended. MUSCULOSKELETAL: No cyanosis, or edema. RLE repair-neurovascular intact BACK: Nontender without obvious deformity. No CVA tenderness. Procedures 10/19- right hip arthroplasty A/P Assessment and Plan 72 Year-old female with Status post right total hip arthroplasty 10/19 Treatment per orthopedic surgery. PT/OT daily. prn pain meds History of hypothyroidism. Continue on Synthroid History of hypertension continue on Cozaar History of GERD continue on PPI History of depression continue on citalopram.Xanax. On Lovenox for DVT prophylax, will discharge on aspirin Discharge Planning Discharge per orthopedic surgery Fahad Denney MD Oct 22, 2017 12:17
--- NOTE | 2017-10-26 11:54 | MD ---
cc: TARA BAKER M.D. ADMISSION DATE: 10/19/2017 DISCHARGE DATE: 10/22/2017 ADMISSION DIAGNOSIS Severe degenerative osteoarthritis right hip. DISCHARGE DIAGNOSIS Severe degenerative osteoarthritis right hip. HISTORY OF PRESENT ILLNESS Ms. Nance is a 72-year-old female who presented to the [facility] for evaluation by Dr. Tara Baker regarding progressive right hip pain. The patient states the pain is a severe aching sensation that is aggravated by weightbearing activities. She has no alleviating factors although in the past she has tried medications, assistive devices, physical therapy, home exercise program, weight loss attempts without relief of symptoms. She does have x-ray evidence of severe degenerative osteoarthritis of the right hip. While in the office the patient was counseled on her diagnosis and treatment options. The risks, benefits and indications were all were discussed. The patient did elect proceed with surgical intervention to include a right total hip arthroplasty. DATE OF SURGERY 10/19/2017. PROCEDURE PERFORMED Right total hip arthroplasty posterior approach. POSTOP After surgery the patient was admitted to [facility] where she received appropriate medical management, pain control, DVT prophylaxis as well as physical therapy. DISCHARGE Once being discharged from the hospital the patient is cleared to go to a shelter facility. She is in stable condition. She may weight-bear as tolerated with posterior hip precautions. She is to receive daily dressing changes. DISCHARGE MEDICATIONS She has been provided prescriptions for pain control as well as DVT prophylaxis medication. FOLLOWUP She has also been provided a follow-up appointment in approximately 2 weeks from her date of surgery. The patient has asked appropriate questions which have been answered. The patient is cleared for discharge. Dictated by: Keon Lopez PA-C Tara Baker MD JWM/SSB /8:14 AM /11:51 AM
== END 2017-10-22 12:38 | DRG 470 ==
LOC: HSDI 06:50 → EDUNIT# 10:00 → N06B 15:58
PROVIDERS: ADMIT Orthopaedic Surgery Sports Medicine; ATTEND Orthopaedic Surgery Sports Medicine
PROC: 0SR902A Replacement of Right Hip Joint with Metal on Polyethylene Synthetic Substitute, Uncemented, Open Approach (ICD-10-PCS; principal; 2017-10-19 09:10)
DX: M16.11 Unilateral primary osteoarthritis, right hip (principal); Z68.41 Body mass index [BMI] 40.0-44.9, adult; I10 Essential (primary) hypertension; E66.01 Morbid (severe) obesity due to excess calories; E03.9 Hypothyroidism, unspecified; K21.9 Gastro-esophageal reflux disease without esophagitis; F32.9 Major depressive disorder, single episode, unspecified; Z87.891 Personal history of nicotine dependence; I25.2 Old myocardial infarction
CPT/HCPCS: 73502; 80048; 81001; 85027; 86850; 86900; 86901; 94150; C1776; J0131; J0690; J1100; J1170; J1580; J1650; J2175; J2250; J2270; J2370; J2405; J2710; J3010; J3370; J7030; J7120; L1830

== ENCOUNTER → 2018-02-05 | Outpatient (CLI) | payer MEDICARE, OTHER ==
[~2018-02-05] MED LIST changes: +ASPI81CH6 CHEW; +COMMODE 3-IN-11 MIS; -FISH1200 PO; +HYDR-3288 PO; +IBUP1TAB5 PO; -IBUP1TAB7 PO; +WALKER WHEELS/F1 MIS
[2018-02-05 11:28] LABS: AUTOMATED NEUTROPHIL # 3.2 TH/MM3 (1.8-7.7); BASOPHIL % 0.5 % (0.0-2.0); EOSINOPHIL # 0.1 TH/MM3 (0-0.4); EOSINOPHIL % 1.4 % (0.0-4.0); HEMOGLOBIN 13.7 GM/DL (11.6-15.3); LYMPH % 27.8 % (9.0-44.0); LYMPHOCYTE # 1.6 TH/MM3 (1.0-4.8); MEAN CELL VOLUME 91.6 FL (80.0-100.0); MEAN CORPUSCULAR HEMOGLOBIN 30.5 PG (27.0-34.0); MEAN CORPUSCULAR HGB CONC 33.3 % (32.0-36.0); MEAN PLATELET VOLUME 9.2 FL (7.0-11.0); MONO % 12.9 % (0.0-8.0); MONOCYTE # 0.7 TH/MM3 (0-0.9); NEUT % 57.4 % (16.0-70.0); PLATELET COUNT 224 TH/MM3 (150-450); RED BLOOD COUNT 4.47 MIL/MM3 (4.00-5.30); WHITE BLOOD COUNT 5.6 TH/MM3 (4.0-11.0)
[2018-02-05 11:31] LABS: BILIRUBIN, URINE NEG (NEG); BLOOD, URINE NEG (NEG); GLUCOSE,URINE NEG (NEG); HYALINE CAST, URINE 2 /lpf (RARE); KETONE, URINE NEG (NEG); NITRITE,URINE NEG (NEG); SQUAMOUS EPITHELIAL CELL URINE 1 /hpf (0-5); URINE COLOR YELLOW (YELLW/STRAW); URINE LEUKOCYTE ESTERASE NEG (NEG)
--- NOTE | 2018-02-05 11:32 | RADRPT ---
EXAM DATE: 02/05/2018 11:25 AM EDT AGE/SEX: 72 years / Female INDICATIONS: Evaluate for pneumonia, pneumothorax or communicable disease. Pre op for left knee repl acement. CLINICAL DATA: This is the patient's initial encounter. Patient reports that signs and symptoms have been present for 1 day and indicates a pain score of 0/10. MEDICAL/SURGICAL HISTORY: . high blood pressure. . hip surgery 10/2011 COMPARISON: [facility] [place], 10/02/2017. . FINDINGS: PA and lateral views of the chest demonstrate the lungs to be symmetrically aerated without evidence of mass, infiltrate or effusion. The cardiomediastinal contours are unremarkable. Osseous structures are intact. CONCLUSION: Negative examination. Electronically signed by: Carl Anderson MD 02/05/2018 11:30 AM EDT
[2018-02-05 12:04] LABS: WESTERGREN SEDIMENTATION RATE 28 mm/hr (0-30)
[2018-02-05 12:16] LABS: ALBUMIN 3.2 GM/DL (3.4-5.0); AST (GOT) 15 U/L (15-37); BICARBONATE 28.2 MEQ/L (21.0-32.0); BLOOD UREA NITROGEN 21 MG/DL (7-18); CALCIUM 9.2 MG/DL (8.5-10.1); CHLORIDE 104 MEQ/L (98-107); CREATININE 0.81 MG/DL (0.50-1.00); GLOMERULAR FILTRATION RATE 70 ML/MIN (>89); GLUCOSE,FASTING 76 MG/DL (74-99); SODIUM (NA) 140 MEQ/L (136-145)
[2018-02-05 12:17] LABS: ALT (GPT) 13 U/L (10-53)
[2018-02-05 12:19] LABS: ALKALINE PHOSPHATASE 174 U/L (45-117); TOTAL BILIRUBIN ADULT 0.5 MG/DL (0.2-1.0); TOTAL PROTEIN 7.3 GM/DL (6.4-8.2)
--- NOTE | 2018-02-05 14:52 | EKG ---
Date Performed: 02/05/2018 Time Performed: 10:33:04 PTAGE: 72 years EKG: Sinus rhythm NORMAL ECG NO PREVIOUS TRACING DOCTOR: Jef Morales Interpretating Date/Time 02/05/2018 14:51:15
== END ==
LOC: CPRE 10:08
PROVIDERS: ATTEND Orthopaedic Surgery Sports Medicine
DX: Z01.810 Encounter for preprocedural cardiovascular examination (principal); M17.12 Unilateral primary osteoarthritis, left knee; Z01.818 Encounter for other preprocedural examination; Z01.812 Encounter for preprocedural laboratory examination
CPT/HCPCS: 36415; 71046; 80053; 81001; 85025; 85610; 85652; 85730; 93005

== ENCOUNTER 2018-02-22 05:41 | Inpatient (IN) | payer MEDICARE, OTHER ==
[~2018-02-22] VITALS: Ht 157.5 cm; Wt 118.5 kg
[~2018-02-22 05:41] MED LIST changes: -ASPI81CH6 CHEW; -CITR500T PO; -COMMODE 3-IN-11 MIS; -HYDR-3288 PO; -WALKER WHEELS/F1 MIS
[2018-02-22] MEDS ORDERED: SODIUM CHLORID 0.9% 500 ML IV PRN (06:15)
[2018-02-22] MEDS ORDERED: POVIDONE IODINE 5% (ANTISEPSIS KIT) 4 APPLICATIONS EACH NARE PRN (06:15)
[2018-02-22] MEDS ORDERED: METOPROLOL TARTRATE 25 MG TAB PO PRN (06:15)
[2018-02-22] MEDS ORDERED: ceFAZolin 2 GM PREMIX 50 ML IV SCH (06:15)
[2018-02-22] MEDS ORDERED: POVIDONE IODINE 7.5% SCRUB 118 ML BOTTLE TOPICAL SCH (06:15)
[2018-02-22] MEDS ORDERED: LACTATED RINGER'S 1000 ML IV PRN (06:15)
[2018-02-22] MEDS ORDERED: VANCOMYCIN 1 GM/200 ML INJ 200 ML IV SCH (06:15)
[2018-02-22] MEDS ORDERED: DEXAMETHASONE SOD PHOS 20 MG/5 ML VIAL IV PUSH ONE (06:15)
[2018-02-22] MEDS ORDERED: CHLORHEXIDINE GLUCONATE 2 % 1 PACK (2 CLOTHS) TOPICAL PRN (06:15)
[2018-02-22] MEDS ORDERED: CHLORHEXIDINE GLUCONATE 4% SOLN 120 ML BTL TOPICAL SCH (06:15)
[2018-02-22] MEDS ORDERED: HYDR-3288 PO (06:37)
[2018-02-22] MEDS ORDERED: ASPI81CH6 CHEW (06:37)
[2018-02-22] MEDS ORDERED: ONDANSETRON ODT 4 MG TAB PO PRN (06:45)
[2018-02-22] MEDS ORDERED: diphenhydrAMINE HCL 50 MG/ML VIAL IV PUSH PRN (06:45)
[2018-02-22] MEDS ORDERED: MORPHINE SULFATE 4 MG/ML INJ IV PUSH PRN (06:45)
[2018-02-22] MEDS ORDERED: Post-op Orders (for Pharmacy) XX ONE (06:45)
[2018-02-22] MEDS ORDERED: ZOLPIDEM TARTRATE 5 MG TAB PO PRN (06:45)
[2018-02-22] MEDS ORDERED: GENTAMICIN SULFATE 80 MG/2 ML VIAL ONE (06:56)
[2018-02-22 07:18] VITALS: PULSE 68
[2018-02-22] MEDS ORDERED: BUPIVACAINE PF 0.75% DEX-WATER INJ 2 ML AMP ONE (07:20)
[2018-02-22] MEDS ORDERED: ACETAMINOPHEN 1000 MG/100 ML 100 ML IV ONE (07:20)
[2018-02-22] MEDS ORDERED: MIDAZOLAM HCL 2 MG/2 ML VIAL ONE (07:48)
[2018-02-22] MEDS ORDERED: BUPIVACAINE LIPOSOME PF 1.3% 20 ML VIAL ONE (07:48)
[2018-02-22] MEDS ORDERED: SODIUM CHLORIDE 0.9% IV SCH (08:30)
[2018-02-22] MEDS ORDERED: ROPIVACAINE PERI-ARTICULAR INJECTION. P-ARTICULR SCH ×5 (08:30)
[2018-02-22] MEDS ORDERED: TRANEXAMIC ACID IV SCH (08:30)
[2018-02-22] MEDS ORDERED: TRANEXAMIC PERI-ARTICULAR 3,000 MG/NS 100 ML P-ARTICULR SCH ×2 (08:30)
[2018-02-22] MEDS ORDERED: DO NOT ADM ANY ANTICOAGULANT DRUGS PRN (10:03)
--- NOTE | 2018-02-22 10:33 | MP ---
cc: Duglas Serrano MD DATE OF OPERATION: 02/22/2018 PREOPERATIVE DIAGNOSIS: Left knee osteoarthritis. POSTOPERATIVE DIAGNOSIS: Left knee osteoarthritis. PROCEDURE: Left total knee arthroplasty. SURGEON: Duglas Serrano MD [employer]ENANT PATROL: GEO Hendrix. ANESTHESIA: General with a femoral nerve adductor canal block. ESTIMATED BLOOD LOSS: 200 mL. COMPLICATIONS: None. IMPLANTS USED: DePuy Attune size 5 posterior stabilized femoral component, size 5 rotating platform tibial baseplate, size 5 mm polyethylene tibial insert, size 32 patella. JUSTIFICATION: This patient is a 72-year-old female with a history of severe osteoarthritis involving the left knee. She has severe disabling pain with standing, walking, ambulation and weight-bearing activities and severe pain at rest. She has failed greater than 3 months of nonoperative conservative treatment to include medication therapy, injections, ambulatory assisted aids, home exercise program, activity modification and weight loss attempts. X-ray of the left knee revealed severe osteoarthritis with [id number] joint space narrowing, subchondral sclerosis, subchondral cyst, osteophyte formation with subluxation. The patient was counseled as to the risks, benefits and alternatives to a total hip arthroplasty. The risks discussed included, but not limited to anesthesia, bleeding, infection, damage to nerves and blood vessels, pain, stiffness, failure of components, blood loss, pulmonary embolus and even . The patient's pain is severe. She favored the benefits over the risks. She did wish to proceed with surgery. PROCEDURE IN DETAIL: Written consent was obtained. The patient identified by name, taken to the operating room, placed supine on the operating table where general anesthesia was administered, as well as 2 grams of IV Ancef and 1 gram of IV vancomycin. A well-padded tourniquet was placed on the left thigh. The left lower extremity prepped and draped using isopropyl alcohol, Hibiclens solution and ChloraPrep solution. A timeout was performed. An Esmarch bandage was used to exsanguinate the left lower extremity. The tourniquet inflated to 300 mmHg. A longitudinal incision was made over the anterior aspect of the left knee. A medial parapatellar arthrotomy was performed. Because of the patient's severe morbid obesity, the tourniquet was having a venous effect and I deflated the tourniquet, which really made no difference in the bleeding. At this point, the patella was everted. There was significant tightness of the patella and a lateral release was performed, which allowed for exposure. An oscillating saw was used to resect approximately 7 mm of the patella. The size 32 mm guide was placed. Three drill holes were placed and a 32 mm trial fit well. Attention was turned to the femur where an intramedullary guide was placed and the distal femoral guide was set to remove 10 mm of distal femur, 5 degrees off the anatomic valgus axis alignment. An oscillating saw was used to perform the distal femoral cut. Attention was turned to the tibia where an extramedullary tibial guide was set to remove 6 mm off the lowest portion of the medial tibial plateau. The tibia guide was pinned in place and a tibia cut was performed. A 5 mm spacer block showed full extension. Attention was turned back to the femur where an AP sizing block measured a size 5. The anterior reference 3-degree external rotation guide was used to pin a size [address] The anterior, posterior and chamfer cuts were performed. A size 5 PCL box was pinned in place and PCL was box cut with an oscillating saw. The medial and lateral meniscus remnants were removed, as well as bone and soft tissue debris from the posterior portion of the knee. A size 5 tibial baseplate was pinned in place and the tibia was drilled and punched. Trial components were evaluated and final components cemented in place with the current components. The leg could achieve full extension to 0 degrees, flexion to 140 with no evidence of tibial liftoff. Varus/valgus balance appeared appropriate and symmetric. The patella was noted to track centrally. The knee was thoroughly irrigated with sterile saline pulse lavage antibiotic impregnated solution. Floseal was placed within the wound to aid with further hemostasis. The arthrotomy incision was closed with #1 Vicryl suture, as well as the lateral release. Subcutaneous layer was closed with 2-0 Vicryl suture. Skin was closed with lisa. Sterile dressing applied. The patient tolerated the procedure well. No intraoperative complications noted. Keon Lopez PA-C was present during the entire procedure to include patient positioning and the procedure itself. The medical necessity of a physical front office assistant was indicated in this case due to the complexity of the procedure. He assisted with appropriate manipulation of the leg and also retraction of muscle, tendon, bone, and neurovascular structures. He assisted with preparation of bone and also implantation of the prosthetic replacement. MD DAKSHA Garcia/JOSE , 09:57 AM , 10:32 AM
[2018-02-22] MEDS ORDERED: *morphine SULFATE 4 MG/ML PERIprocedure ONLY ONE (10:37)
--- NOTE | 2018-02-22 11:04 | PD.CONS ---
HPI Service [facility] Hospitalists Consult Requested By Dr. Serrano-orthopedic service Reason for Consult Assist with medical management Primary Care Physician Catia Pearson MD Diagnoses: History of Present Illness This is a 72-year-old female with past medical history significant for hypertension, hypothyroidism, GERD, depression and severe osteoarthritis who tried and failed numerous attempts at conservative management of her left total knee pain and underwent an elective left total knee replacement performed by Dr. Serrano today. Hospitalist services have been consulted for medical management. Patient seen and examined in PACU. She states she has been in her normal state of health prior to today's surgery. She denies any recent illness , fever or chills. She denies any chest pain or shortness of breath. She denies any nausea, vomiting or abdominal pain. She denies any urinary difficulties, diarrhea or constipation. Patient lives alone and uses a cane and walker to aid with ambulation. She continues to drive. Of note, she underwent a right total hip replacement in October of this year and states she is done very well since the surgery. Review of Systems Except as stated in HPI: all other systems reviewed are Neg Past Family Social History Allergies: Coded Allergies: No Known Allergies (Unverified , 02/22/18) Past Medical History Severe osteoarthritis left knee Hypertension Hypothyroidism GERD Depression Past Surgical History Right total hip replacement 10/19/2017 Reported Medications Aspirin Low Dose (Aspirin) 81 Mg Chew 81 Mg CHEW BID 30 Days [place] (Hydrocodone-Acetaminophen) 7.5-325 mg Tab 1-2 Tab PO Q6H PRN Ibuprofen 400 Mg Tab 400 Mg PO Q8H PRN Calcium 600 with Vitamin D (Calcium Carbonate-Cholecalciferol) 600-400 mg-Unit Tab 1 Tab PO BID Vitamin C ER (Ascorbic Acid) 500 Mg Danilo 1,000 Mg PO HS Multiple Vitamin 1 Tab 1 Tab PO DAILY Tramadol (Tramadol HCl) 50 Mg Tab 50 Mg PO DIRECTED PRN Alprazolam 0.5 Mg Tab 0.5 Mg PO DIRECTED PRN Citalopram (Citalopram Hydrobromide) 10 Mg Tab 20 Mg PO DAILY Levothyroxine (Levothyroxine Sodium) 125 Mcg Tab 125 Mcg PO DAILY Omeprazole 20 Mg Tab 20 Mg PO DAILY Irbesartan 150 Mg Tab 150 Mg PO DAILY Active Ordered Medications Current Medications Medications (Trade) Dose Ordered Sig/Jean Route Start Time Stop Time Status Last Admin Lactated Ringer's 1,000 ml @ 30 mls/hr Q24H PRN IV 02/22/18 06:15 02/25/18 06:14 02/22/18 06:48 Sodium Chloride 500 ml @ 30 mls/hr [id number] PRN IV 02/22/18 06:15 02/25/18 06:14 (Lopressor) 25 mg REGISTERED DIET TECHNICIAN PRN PO 02/22/18 06:15 02/25/18 06:14 (Betadine 5% Antisepsis Kit) 1 applic REGISTERED DIET TECHNICIAN PRN EACH NARE 02/22/18 06:15 02/25/18 06:14 02/22/18 06:48 (Chlorhexidine 2% Cloth) 3 pack REGISTERED DIET TECHNICIAN PRN TOPICAL 02/22/18 06:15 02/25/18 06:14 02/22/18 05:50 (Betadine 7.5% Scrub) 1 applic ONCE TOPICAL 02/22/18 06:15 02/25/18 06:14 02/22/18 06:48 (Hibiclens 4% Top Soln) 1 applic ONCE TOPICAL 02/22/18 06:15 02/25/18 06:14 Cefazolin Sodium/ Dextrose 50 ml @ 100 mls/hr REGISTERED DIET TECHNICIAN IV 02/22/18 06:15 02/25/18 06:14 02/22/18 08:00 Vancomycin/Sodium Chloride 200 ml @ 250 mls/hr REGISTERED DIET TECHNICIAN IV 02/22/18 06:15 02/23/18 06:14 02/22/18 08:00 Tranexamic Acid 1719 mg/Sodium Chloride 117.19 ml @ 200 mls/ hr ONCE IV 02/22/18 08:30 02/22/18 14:30 02/22/18 08:15 Ropivacaine 24.63 ml/Ketorolac Tromethamine 30 mg/Epinephrine HCl 0.5 mg/ Clonidine 80 mcg/ Sodium Chloride 100 ml @ 200 mls/hr ONCE P-ARTICULR 02/22/18 08:30 02/22/18 14:30 02/22/18 08:54 Tranexamic Acid 3000 mg/Sodium Chloride 130 ml @ 260 mls/hr ONCE P-ARTICULR 02/22/18 08:30 02/22/18 14:30 02/22/18 08:54 (CeleXA) 20 mg DAILY PO 02/23/18 09:00 (Synthroid) 125 mcg DAILY@0600 PO 02/23/18 06:00 (Cozaar) 50 mg DAILY PO 02/23/18 09:00 (Protonix) 20 mg DAILY PO 02/23/18 09:00 Sodium Chloride 1,000 ml @ 100 mls/hr Q10H IV 02/22/18 06:34 UNV Cefazolin Sodium/ Dextrose 50 ml @ 100 mls/hr Q6H IV 02/22/18 06:45 02/22/18 19:14 [place] [place] ONCE XX 02/22/18 06:45 02/22/18 06:46 UNV (Lovenox Inj) 40 mg Q24H SQ 02/22/18 06:45 03/03/18 06:46 UNV (Morphine Inj) 3 mg Q3H PRN IV PUSH 02/22/18 06:45 (Mills 7.5-325 Mg) 1 tab Q4H PRN PO 02/22/18 06:45 (Mills 7.5-325 Mg) 2 tab Q4H PRN PO 02/22/18 06:45 (Theragran M Tab) 1 tab BID PO 02/23/18 21:00 04/24/18 20:59 (Zofran Odt) 4 mg Q6H PRN PO 02/22/18 06:45 (Colace) 100 mg BID PO 02/23/18 21:00 (Ambien) 5 mg HS PRN PO 02/22/18 06:45 (Benadryl Inj) 25 mg Q6H PRN IV PUSH 02/22/18 06:45 Family History Mother, stroke Grandmother, heart disease Alzheimer's dementia Social History Patient has remote history of tobacco use having quit 35 years ago. She reports rare alcohol consumption. She denies any illicit drug use. Physical Exam Vital Signs Vital Signs Date Time Temp Pulse Resp B/P (MAP) Pulse Ox O2 Delivery O2 Flow Rate FiO2 02/22/18 07:18 98 Nasal Cannula 2 02/22/18 07:18 68 02/22/18 06:32 98.1 68 20 98/48 (65) 95 Physical Exam GENERAL: This is a well-nourished, well-developed obese female patient , in no apparent distress. Awake and alert. Appears comfortable. SKIN: No rashes, ecchymoses or lesions. Cool and dry. HEAD: Atraumatic. Normocephalic. No temporal or scalp tenderness. EYES: Pupils equal round and reactive. Extraocular motions intact. No scleral icterus. No injection or drainage. ENT: Nose without bleeding or purulent drainage. Throat without erythema, tonsillar hypertrophy or exudate. Uvula midline. Airway patent. NECK: Trachea midline. No lymphadenopathy. Supple, nontender, no meningeal signs. CARDIOVASCULAR: Regular rate and rhythm without murmurs, gallops, or rubs. RESPIRATORY: Clear to auscultation anteriorly. Breath sounds equal bilaterally. No wheezes, rales, or rhonchi. GASTROINTESTINAL: Abdomen soft, non-tender, nondistended. No hepato-splenomegaly , or palpable masses. No guarding. MUSCULOSKELETAL: Extremities without clubbing, cyanosis, or edema. No calf tenderness. s/p left TKA, LLE in knee immobilizer and YASMEEN wrap. Distally, able to wiggle toes of left foot and pulses intact. NEUROLOGICAL: Awake and alert. Cranial nerves II through XII grossly intact. Motor and sensory grossly within normal limits. No focal neurologic findings appreciated. Normal speech. Assessment and Plan Assessment and Plan 72-year-old female with past medical history significant for hypertension, hypothyroidism, GERD, depression and severe osteoarthritis who tried and failed numerous attempts at conservative management of her left total knee pain and underwent an elective left total knee replacement performed by Dr. Serrano today. Hospitalist services have been consulted for medical management. Severe osteoarthritis left knee status post elective left total knee replacement by Dr. Serrano -Management per Ortho service -pain management with bowel regimen -Monitor wound healing -Monitor CBC for postoperative anemia of acute blood loss, repeat CBC in am -PT eval/treat per Ortho instructions -fall precautions Hypertension, chronic, currently hypotensive BP 98/48 -Continue patient on home dose of Cozaar 50 mg daily -Continue to monitor BP and adjust treatment accordingly Hypothyroidism, chronic -Continue patient on home dose of levothyroxine 125 mcg daily GERD -Continue patient on PPI Depression -Continue patient on home dose of citalopram 10 mg daily DVT prophylaxis -Lovenox 40mg sq per Ortho Thank you very kindly for this consultation. We will continue to follow patient along with you. Discussed Condition With patient, nursing staff, Nicole Youssef Feb 22, 2018 11:04
[2018-02-22] MEDS: SODIUM CHLOR 0.9% 1000 ML INJ 1,000 ML IV SCH ×2 (11:16→16:34)
--- NOTE | 2018-02-22 11:41 | RADRPT ---
EXAM DATE: 02/22/2018 11:22 AM EDT AGE/SEX: 72 years / Female INDICATIONS: Post op left knee. CLINICAL DATA: This is the patient's initial encounter. Patient reports that signs and symptoms have been present for 1 day and indicates a pain score of Nonresponsive. MEDICAL/SURGICAL HISTORY: None. None. COMPARISON: No prior exams available for comparison. FINDINGS: The patient is post left knee arthroplasty. The orthopedic hardware is in excellent position. Alignme nt is good. CONCLUSION: Excellent alignment of the orthopedic hardware is post left knee arthroplasty. Electronically signed by: Luis Alberto Anderson MD 02/22/2018 11:40 AM EDT
[2018-02-22] MEDS ORDERED: ONDANSETRON HCL 4 MG/2 ML VIAL IV PUSH ONE (12:00)
[2018-02-22] MEDS ORDERED: DEXAMETHASONE SOD PHOS 4 MG/ML VIAL IV ONE (12:00)
[2018-02-22] MEDS ORDERED: LIDOCAINE HCL 1% PF 5 ML SYRINGE OTHER ONE (12:00)
[2018-02-22] MEDS ORDERED: LACTATED RINGER'S 1000 ML INJ 1,000 ML IV ONE (12:00)
[2018-02-22] MEDS ORDERED: PHENYLEPH/NS 1000 MCG/10 ML SYR IV ONE (12:00)
[2018-02-22] MEDS ORDERED: PROPOFOL 200 MG/20 ML AMP IV ONE (12:00)
[2018-02-22] MEDS ORDERED: NEOSTIGMINE 5 MG/5 ML SYRINGE IV PUSH ONE (12:00)
[2018-02-22] MEDS ORDERED: ePHEDrine/NS 25 MG/5 ML SYRINGE IV ONE (12:00)
[2018-02-22] MEDS ORDERED: ROCURONIUM INJ 50 MG/5 ML SYRINGE IV PUSH ONE (12:00)
[2018-02-22] MEDS ORDERED: GLYCOPYRROLATE 1 MG/5 ML SYRINGE IV PUSH ONE (12:00)
[2018-02-22] MEDS: ACETAMINOPHEN/HYDROcodone 325 MG/7.5 MG TAB PO PRN ×3 (14:20→23:31)
[2018-02-22] MEDS: ceFAZolin 2 GM PREMIX 50 ML IV SCH ×2 (14:21→21:00)
[2018-02-22 16:00] VITALS: BP 106/55; PULSE 62; RESP 17; TEMP 97.6; O2SAT 97
[2018-02-22 19:45] VITALS: BP 107/55; PULSE 57; RESP 18; TEMP 97.1; O2SAT 95
[2018-02-23] VITALS: BP 104/51; PULSE 53; RESP 18; TEMP 97.6; O2SAT 96
[2018-02-23] MEDS: SODIUM CHLOR 0.9% 1000 ML INJ 1,000 ML IV SCH ×3 (02:28→22:34)
[2018-02-23] MEDS: ceFAZolin 2 GM PREMIX 50 ML IV SCH (02:28)
[2018-02-23] MEDS: LEVOTHYROXINE SODIUM 125 MCG TAB PO SCH (05:36)
[2018-02-23] MEDS: ACETAMINOPHEN/HYDROcodone 325 MG/7.5 MG TAB PO PRN ×4 (05:36→21:14)
[2018-02-23 06:59] LABS: HEMATOCRIT 31.6 % (35.0-46.0); HEMOGLOBIN 10.7 GM/DL (11.6-15.3); MEAN CELL VOLUME 92.3 FL (80.0-100.0); MEAN CORPUSCULAR HEMOGLOBIN 31.3 PG (27.0-34.0); MEAN CORPUSCULAR HGB CONC 33.9 % (32.0-36.0); MEAN PLATELET VOLUME 8.8 FL (7.0-11.0); PLATELET COUNT 209 TH/MM3 (150-450); RED BLOOD COUNT 3.42 MIL/MM3 (4.00-5.30); WHITE BLOOD COUNT 9.6 TH/MM3 (4.0-11.0)
[2018-02-23 07:21] LABS: BICARBONATE 25.4 MEQ/L (21.0-32.0); CREATININE 1.09 MG/DL (0.50-1.00)
[2018-02-23 08:00] VITALS: BP 113/63; PULSE 71; RESP 17; TEMP 97.9; O2SAT 98
[2018-02-23] MEDS: PANTOPRAZOLE SOD 20 MG DELAYED RELEASE TAB PO SCH (08:33)
[2018-02-23] MEDS: ENOXAPARIN SODIUM 40 MG/0.4 ML SYRINGE SQ SCH (08:33)
[2018-02-23] MEDS: CITALOPRAM HYDROBROMIDE 20 MG TAB PO SCH (08:33)
[2018-02-23] MEDS: LOSARTAN 50 MG TAB PO SCH (08:33)
--- NOTE | 2018-02-23 09:01 | PD.ORT.PN ---
Subjective Post Op Day #: 1 Subjective Remarks pain tolerable Objective Vitals Vital Signs Date Time Temp Pulse Resp B/P (MAP) Pulse Ox O2 Delivery O2 Flow Rate FiO2 02/23/18 08:00 97.9 71 17 113/63 (80) 98 02/23/18 00:00 97.6 53 18 104/51 (68) 96 02/22/18 19:45 97.1 57 18 107/55 (72) 95 02/22/18 16:00 97.6 62 17 106/55 (72) 97 02/22/18 12:57 97.5 58 17 113/57 (75) 96 Room Air 02/22/18 12:30 53 17 113/55 (74) 96 Room Air 02/22/18 12:00 63 15 110/64 (79) 98 Room Air 02/22/18 11:30 57 16 112/68 (83) 98 Nasal Cannula 2 02/22/18 11:15 63 16 112/54 (73) 98 Nasal Cannula 2 02/22/18 11:00 67 16 108/53 (71) 99 Nasal Cannula 2 02/22/18 10:45 72 15 111/55 (73) 99 Nasal Cannula 2 02/22/18 10:30 79 15 123/57 (79) 100 Nasal Cannula 2 02/22/18 10:22 97.5 82 15 137/58 (84) 100 Nasal Cannula 2 I/O 02/22/18 02/22/18 02/22/18 02/23/18 02/23/18 02/23/18 07:00 15:00 23:00 07:00 15:00 23:00 Intake Total 1325 ml 480 ml 800 ml Output Total 650 ml 300 ml Balance 675 ml 480 ml 500 ml Intake Oral 480 ml 800 ml IV Total 1325 ml Output Urine Total 450 ml 300 ml Estimated Blood Loss 200 ml # Voids 1 # Bowel Movements 1 Result Diagram: 02/23/18 0540 02/23/18 0540 Objective Remarks in bed, nad dressing c/d/i neg homans nvi Assessment & Plan Ortho Post Op Day #: 1 Problem List: Assessment and Plan s/p L TKA wbat ok to maintain dressing unless saturated lovenox, d/c on [id number] PT d/c planning to snf f/up dr. rendon 2 weeks Duglas Lopez Feb 23, 2018 09:01
--- NOTE | 2018-02-23 09:03 | HHI.DCPOC ---
Discharge Care Plan Diagnosis: (1) Primary localized osteoarthrosis, lower leg Your Health Problems Are: Difficulty with ADL Goals to Promote Your Health * To prevent worsening of your condition and complications * To maintain your health at the optimal level Directions to Meet Your Goals Take your medications as prescribed Follow your dietary instruction Follow activity as directed Keep your appointments as scheduled Take your immunizations and boosters as scheduled If your symptoms worsen call your PCP, if no PCP go to Urgent Care Center or Emergency Room Smoking is Dangerous to Your Health. Avoid second hand smoke Call the 24-hour hour crisis hotline for domestic abuse at Duglas Lopez Feb 23, 2018 09:03
[2018-02-23] MEDS ORDERED: CPMMACHINE (09:04)
[2018-02-23 12:00] VITALS: BP 99/47; PULSE 63; RESP 17; TEMP 97.8; O2SAT 97
--- NOTE | 2018-02-23 12:53 | HHI.PR ---
Subjective Remarks Patient sitting up in chair offers no complaints at this time reports post-op pain, "not that bad." Objective Vitals Vital Signs Date Time Temp Pulse Resp B/P (MAP) Pulse Ox O2 Delivery O2 Flow Rate FiO2 02/23/18 08:00 97.9 71 17 113/63 (80) 98 02/23/18 00:00 97.6 53 18 104/51 (68) 96 02/22/18 19:45 97.1 57 18 107/55 (72) 95 02/22/18 16:00 97.6 62 17 106/55 (72) 97 02/22/18 12:57 97.5 58 17 113/57 (75) 96 Room Air I/O 02/22/18 02/22/18 02/22/18 02/23/18 02/23/18 02/23/18 07:00 15:00 23:00 07:00 15:00 23:00 Intake Total 1325 ml 480 ml 800 ml Output Total 650 ml 300 ml Balance 675 ml 480 ml 500 ml Intake Oral 480 ml 800 ml IV Total 1325 ml Output Urine Total 450 ml 300 ml Estimated Blood Loss 200 ml # Voids 1 # Bowel Movements 1 Result Diagram: 02/23/18 0540 02/23/18 0540 Other Results Laboratory Tests Test 02/23/18 05:40 White Blood Count 9.6 TH/MM3 Red Blood Count 3.42 MIL/MM3 Hemoglobin 10.7 GM/DL Hematocrit 31.6 % Mean Corpuscular Volume 92.3 FL Mean Corpuscular Hemoglobin 31.3 PG Mean Corpuscular Hemoglobin Concent 33.9 % Red Cell Distribution Width 14.0 % Platelet Count 209 TH/MM3 Mean Platelet Volume 8.8 FL Blood Urea Nitrogen 19 MG/DL Creatinine 1.09 MG/DL Random Glucose 105 MG/DL Calcium Level 8.0 MG/DL Sodium Level 141 MEQ/L Potassium Level 4.2 MEQ/L Chloride Level 107 MEQ/L Carbon Dioxide Level 25.4 MEQ/L Anion Gap 9 MEQ/L Estimat Glomerular Filtration Rate 50 ML/MIN Imaging Last Impressions Knee X-Ray 02/22/18 0634 Signed Impressions: CONCLUSION: Excellent alignment of the orthopedic hardware is post left knee arthroplasty. Objective Remarks GENERAL: This is a obese, well-developed patient, in no apparent distress. CARDIOVASCULAR: Regular rate and rhythm RESPIRATORY: Clear to auscultation. Breath sounds equal bilaterally. GASTROINTESTINAL: Abdomen soft, non-tender, nondistended. Normal active bowel sounds MUSCULOSKELETAL: Extremities without clubbing, cyanosis, or edema. Post-op dressing dry and intact NEURO: Alert & Oriented x4 to person, place, time, situation. Moves all ext x4 A/P Assessment and Plan 72-year-old female with past medical history significant for hypertension, hypothyroidism, GERD, depression and severe osteoarthritis who tried and failed numerous attempts at conservative management of her left total knee pain and underwent an elective left total knee replacement performed by Dr. Serrano today. Hospitalist services have been consulted for medical management. Severe osteoarthritis left knee status post elective left total knee replacement by Dr. Serrano -Management per Ortho service -pain management with bowel regimen -Monitor wound healing -Monitor CBC for postoperative anemia of acute blood loss, CBC reveled H/H 10.7/31.6 -PT eval/treat per Ortho instructions -fall precautions Hypertension, chronic, currently hypotensive -Continue patient on home dose of Cozaar 50 mg daily with hold parameters -Continue to monitor BP and adjust treatment accordingly Hypothyroidism, chronic -Continue patient on home dose of levothyroxine 125 mcg daily GERD -Continue patient on PPI Depression -Continue patient on home dose of citalopram 10 mg daily DVT prophylaxis -Lovenox 40mg sq per Ortho Case discussed with patient nurse and Dr. Hensley (supervising physician) Estrellita Medrano Feb 23, 2018 12:53
[2018-02-23 16:00] VITALS: BP 113/58; PULSE 64; RESP 17; TEMP 97.3; O2SAT 97
[2018-02-23 19:45] VITALS: BP 111/50; PULSE 71; RESP 18; TEMP 98.2; O2SAT 97
[2018-02-23] MEDS: MULTIVITAMINS/MINERALS THERAPEUTIC TAB PO SCH (21:14)
[2018-02-23] MEDS: DOCUSATE SODIUM 100 MG CAP PO SCH (21:14)
[2018-02-24] VITALS: BP 112/58; PULSE 84; RESP 18; TEMP 97.9; O2SAT 95
[2018-02-24] MEDS: ACETAMINOPHEN/HYDROcodone 325 MG/7.5 MG TAB PO PRN ×6 (01:25→22:52)
[2018-02-24] MEDS: LEVOTHYROXINE SODIUM 125 MCG TAB PO SCH (05:16)
[2018-02-24 07:17] LABS: HEMATOCRIT 28.6 % (35.0-46.0); HEMOGLOBIN 9.8 GM/DL (11.6-15.3); MEAN CELL VOLUME 91.5 FL (80.0-100.0); MEAN CORPUSCULAR HEMOGLOBIN 31.3 PG (27.0-34.0); MEAN CORPUSCULAR HGB CONC 34.2 % (32.0-36.0); PLATELET COUNT 164 TH/MM3 (150-450); RED BLOOD COUNT 3.13 MIL/MM3 (4.00-5.30); RED CELL DISTRIBUTION WIDTH 14.2 % (11.6-17.2); WHITE BLOOD COUNT 6.7 TH/MM3 (4.0-11.0)
[2018-02-24 07:44] LABS: BICARBONATE 24.4 MEQ/L (21.0-32.0); CALCIUM 8.2 MG/DL (8.5-10.1); CREATININE 0.79 MG/DL (0.50-1.00)
[2018-02-24 08:00] VITALS: BP 113/51; PULSE 75; RESP 17; TEMP 98.4; O2SAT 96
[2018-02-24] MEDS: SODIUM CHLOR 0.9% 1000 ML INJ 1,000 ML IV SCH ×2 (08:34→17:38)
[2018-02-24] MEDS: PANTOPRAZOLE SOD 20 MG DELAYED RELEASE TAB PO SCH (10:17)
[2018-02-24] MEDS: CITALOPRAM HYDROBROMIDE 20 MG TAB PO SCH (10:17)
[2018-02-24] MEDS: LOSARTAN 50 MG TAB PO SCH (10:17)
[2018-02-24] MEDS: DOCUSATE SODIUM 100 MG CAP PO SCH ×2 (10:17→22:51)
[2018-02-24] MEDS: MULTIVITAMINS/MINERALS THERAPEUTIC TAB PO SCH ×2 (10:17→22:53)
[2018-02-24] MEDS: ENOXAPARIN SODIUM 40 MG/0.4 ML SYRINGE SQ SCH (10:18)
--- NOTE | 2018-02-24 11:18 | HHI.PR ---
Subjective Remarks Patient states that she is doing well. Her left knee pain is controlled. She has no concerns overnight. Objective Vitals Vital Signs Date Time Temp Pulse Resp B/P (MAP) Pulse Ox O2 Delivery O2 Flow Rate FiO2 02/24/18 08:00 98.4 75 17 113/51 (71) 96 02/24/18 00:00 97.9 84 18 112/58 (76) 95 02/23/18 19:45 98.2 71 18 111/50 (70) 97 02/23/18 16:00 97.3 64 17 113/58 (76) 97 02/23/18 12:00 97.8 63 17 99/47 (64) 97 I/O 02/23/18 02/23/18 02/23/18 02/24/18 02/24/18 02/24/18 07:00 15:00 23:00 07:00 15:00 23:00 Intake Total 800 ml 1200 ml 620 ml Output Total 300 ml Balance 500 ml 1200 ml 620 ml Intake Oral 800 ml 1200 ml 620 ml Output Urine Total 300 ml # Voids 2 4 # Bowel Movements 1 Result Diagram: 02/24/18 0614 02/24/18 0614 Objective Remarks GENERAL: This is a well-nourished, well-developed patient, in no apparent distress. CARDIOVASCULAR: Regular rate and rhythm RESPIRATORY: Clear to auscultation. Breath sounds equal bilaterally. No wheezes , rales, or rhonchi. GASTROINTESTINAL: Abdomen soft, non-tender, nondistended. Normal active bowel sounds MUSCULOSKELETAL: Left knee bandage clean dry intact NEURO: Alert & Oriented x4 to person, place, time, situation. Moves all ext x4 A/P Assessment and Plan 72-year-old female with past medical history significant for hypertension, hypothyroidism, GERD, depression and severe osteoarthritis who tried and failed numerous attempts at conservative management of her left total knee pain and underwent an elective left total knee replacement performed by Dr. Serrano today. Hospitalist services have been consulted for medical management. Severe osteoarthritis left knee status post elective left total knee replacement by Dr. Serrano -Continue postoperative care and management per Ortho service -pain management with bowel regimen -Monitor wound healing -Monitor CBC for postoperative anemia of acute blood loss, last hemoglobin 9.8 -PT eval/treat per Ortho instructions -fall precautions Hypertension, chronic, overall controlled -Continue patient on home dose of Cozaar 50 mg daily with hold parameters -Continue to monitor BP and adjust treatment accordingly Hypothyroidism, chronic -Continue patient on home dose of levothyroxine 125 mcg daily GERD -Continue patient on PPI Depression -Continue patient on home dose of citalopram 10 mg daily DVT prophylaxis -Lovenox 40mg sq per Ortho Discharge Planning To custodial facility tomorrow when cleared by orthopedic surgery Mallory Millard MD Feb 24, 2018 11:18
--- NOTE | 2018-02-24 11:31 | PD.ORT.PN ---
Subjective Post Op Day #: 2 Subjective Remarks pain tolerable. feeling better. Objective Vitals Vital Signs Date Time Temp Pulse Resp B/P (MAP) Pulse Ox O2 Delivery O2 Flow Rate FiO2 02/24/18 08:00 98.4 75 17 113/51 (71) 96 02/24/18 00:00 97.9 84 18 112/58 (76) 95 02/23/18 19:45 98.2 71 18 111/50 (70) 97 02/23/18 16:00 97.3 64 17 113/58 (76) 97 02/23/18 12:00 97.8 63 17 99/47 (64) 97 I/O 02/23/18 02/23/18 02/23/18 02/24/18 02/24/18 02/24/18 07:00 15:00 23:00 07:00 15:00 23:00 Intake Total 800 ml 1200 ml 620 ml Output Total 300 ml Balance 500 ml 1200 ml 620 ml Intake Oral 800 ml 1200 ml 620 ml Output Urine Total 300 ml # Voids 2 4 # Bowel Movements 1 Result Diagram: 02/24/18 0614 02/24/18 0614 Objective Remarks in chair, nad dressing c/d/i neg homans nvi Assessment & Plan Ortho Post Op Day #: 2 Problem List: Assessment and Plan s/p L TKA wbat ok to maintain dressing unless saturated lovenox, d/c on asa81 PT d/c planning to snf - [facility] f/up dr. rendon 2 weeks Duglas Lopez Feb 24, 2018 11:31
[2018-02-24 12:00] VITALS: BP 107/51; PULSE 68; RESP 17; TEMP 98.2; O2SAT 92
[2018-02-24 16:00] VITALS: BP 137/63; PULSE 81; RESP 17; TEMP 97.3; O2SAT 96
[2018-02-24 20:06] VITALS: BP 121/59; PULSE 79; RESP 18; TEMP 98.2; O2SAT 95
[2018-02-24 23:18] VITALS: BP 120/56; PULSE 85; RESP 18; TEMP 97.9; O2SAT 97
[2018-02-25] MEDS: SODIUM CHLOR 0.9% 1000 ML INJ 1,000 ML IV SCH (03:05)
[2018-02-25] MEDS: LEVOTHYROXINE SODIUM 125 MCG TAB PO SCH (04:40)
[2018-02-25] MEDS: ACETAMINOPHEN/HYDROcodone 325 MG/7.5 MG TAB PO PRN ×2 (04:42→09:26)
[2018-02-25 07:24] LABS: HEMATOCRIT 28.1 % (35.0-46.0); HEMOGLOBIN 9.6 GM/DL (11.6-15.3); MEAN CELL VOLUME 90.9 FL (80.0-100.0); MEAN CORPUSCULAR HGB CONC 34.1 % (32.0-36.0); MEAN PLATELET VOLUME 8.7 FL (7.0-11.0); PLATELET COUNT 179 TH/MM3 (150-450); RED BLOOD COUNT 3.09 MIL/MM3 (4.00-5.30); RED CELL DISTRIBUTION WIDTH 14.1 % (11.6-17.2); WHITE BLOOD COUNT 6.7 TH/MM3 (4.0-11.0)
[2018-02-25 07:51] LABS: CALCIUM 8.4 MG/DL (8.5-10.1); CREATININE 0.77 MG/DL (0.50-1.00)
[2018-02-25 08:00] VITALS: BP 130/59; PULSE 72; RESP 16; TEMP 97.9; O2SAT 98
--- NOTE | 2018-02-25 08:05 | PD.ORT.PN ---
Subjective Post Op Day #: 3 Subjective Remarks doing well. Objective Vitals Vital Signs Date Time Temp Pulse Resp B/P (MAP) Pulse Ox O2 Delivery O2 Flow Rate FiO2 02/25/18 05:40 18 02/24/18 23:53 Room Air 02/24/18 23:18 97.9 85 18 120/56 (77) 97 02/24/18 20:06 98.2 79 18 121/59 (79) 95 02/24/18 16:00 97.3 81 17 137/63 (87) 96 02/24/18 12:00 98.2 68 17 107/51 (69) 92 I/O 02/24/18 02/24/18 02/24/18 02/25/18 02/25/18 02/25/18 07:00 15:00 23:00 07:00 15:00 23:00 Intake Total 620 ml 720 ml 480 ml Balance 620 ml 720 ml 480 ml Intake Oral 620 ml 720 ml 480 ml # Voids 4 4 3 # Bowel Movements 1 0 Result Diagram: 02/25/18 0540 02/25/18 0540 Objective Remarks in chbed, nad incision no erythema, no drainage neg homans nvi Assessment & Plan Ortho Post Op Day #: 3 Problem List: Assessment and Plan s/p L TKA wbat daily dressing changes lovenox, d/c on asa81 PT d/c planning to snf - cleared today f/up dr. rendon 2 weeks Duglas Lopez Feb 25, 2018 08:05
[2018-02-25] MEDS: PANTOPRAZOLE SOD 20 MG DELAYED RELEASE TAB PO SCH (09:26)
[2018-02-25] MEDS: MULTIVITAMINS/MINERALS THERAPEUTIC TAB PO SCH (09:27)
[2018-02-25] MEDS: DOCUSATE SODIUM 100 MG CAP PO SCH (09:27)
[2018-02-25] MEDS: CITALOPRAM HYDROBROMIDE 20 MG TAB PO SCH (09:27)
[2018-02-25] MEDS: ENOXAPARIN SODIUM 40 MG/0.4 ML SYRINGE SQ SCH (09:27)
[2018-02-25] MEDS: LOSARTAN 50 MG TAB PO SCH (09:28)
--- NOTE | 2018-02-25 09:40 | HHI.PR ---
Subjective Remarks Reports no pain unless ambulating. Objective Vitals Vital Signs Date Time Temp Pulse Resp B/P (MAP) Pulse Ox O2 Delivery O2 Flow Rate FiO2 02/25/18 05:40 18 02/24/18 23:53 Room Air 02/24/18 23:18 97.9 85 18 120/56 (77) 97 02/24/18 20:06 98.2 79 18 121/59 (79) 95 02/24/18 16:00 97.3 81 17 137/63 (87) 96 02/24/18 12:00 98.2 68 17 107/51 (69) 92 I/O 02/24/18 02/24/18 02/24/18 02/25/18 02/25/18 02/25/18 07:00 15:00 23:00 07:00 15:00 23:00 Intake Total 620 ml 720 ml 480 ml Balance 620 ml 720 ml 480 ml Intake Oral 620 ml 720 ml 480 ml # Voids 4 4 3 # Bowel Movements 1 0 Result Diagram: 02/25/18 0540 02/25/18 0540 Objective Remarks GENERAL: This is a well-nourished, well-developed patient, in no apparent distress. CARDIOVASCULAR: Regular rate and rhythm RESPIRATORY: Clear to auscultation. Breath sounds equal bilaterally. No wheezes , rales, or rhonchi. MUSCULOSKELETAL: Left knee bandage clean dry intact NEURO: Alert & Oriented x4 to person, place, time, situation. Moves all ext x4 A/P Assessment and Plan 72-year-old female with past medical history significant for hypertension, hypothyroidism, GERD, depression and severe osteoarthritis who tried and failed numerous attempts at conservative management of her left total knee pain and underwent an elective left total knee replacement performed by Dr. Serrano today. Hospitalist services have been consulted for medical management. Severe osteoarthritis left knee status post elective operative day #3 left total knee replacement by Dr. Serrano -Continue postoperative care and management per Ortho service -pain management with bowel regimen -Continue physical therapy Hypertension, chronic, overall controlled -Continue patient on home dose of Cozaar 50 mg daily with hold parameters -Continue to monitor BP and adjust treatment accordingly Hypothyroidism, chronic -Continue patient on home dose of levothyroxine 125 mcg daily GERD -Continue patient on PPI Depression -Continue patient on home dose of citalopram 10 mg daily DVT prophylaxis -Lovenox 40mg sq per Ortho Discharge Planning To group home facility today Mallory Millard MD Feb 25, 2018 09:40
[2018-02-25 10:26] VITALS: RESP 18
== END 2018-02-25 11:43 | DRG 470 ==
LOC: HSDI 05:41 → N06A 13:20
PROVIDERS: ADMIT Orthopaedic Surgery Sports Medicine; ATTEND Orthopaedic Surgery Sports Medicine
PROC: 3E0T3BZ Introduction of Anesthetic Agent into Peripheral Nerves and Plexi, Percutaneous Approach (ICD-10-PCS; 2018-02-22)
PROC: 0SRD0J9 Replacement of Left Knee Joint with Synthetic Substitute, Cemented, Open Approach (ICD-10-PCS; principal; 2018-02-22 08:09)
DX: M17.12 Unilateral primary osteoarthritis, left knee (principal); I95.9 Hypotension, unspecified; Z68.42 Body mass index [BMI] 45.0-49.9, adult; I10 Essential (primary) hypertension; E78.5 Hyperlipidemia, unspecified; K21.9 Gastro-esophageal reflux disease without esophagitis; E66.9 Obesity, unspecified; Z96.641 Presence of right artificial hip joint; E03.9 Hypothyroidism, unspecified; F32.9 Major depressive disorder, single episode, unspecified; Z82.3 Family history of stroke; Z82.49 Family history of ischemic heart disease and other diseases of the circulatory system; Z87.891 Personal history of nicotine dependence; Z79.899 Other long term (current) drug therapy
CPT/HCPCS: 73560; 80048; 85027; 86850; 86900; 86901; 94150; C1776; C9290; J0131; J0690; J0735; J1100; J1580; J1650; J1885; J2250; J2270; J2370; J2405; J2710; J2795; J3010; J3370; J7030; J7120; L1830